=== PATIENT | male | born 1975 | race Caucasian/White ===

== ENCOUNTER 2019-01-22 12:45 | Inpatient (IN) | payer OTHER ==
[2019-01-22 13:37] VITALS: BMI 27.1
--- NOTE | 2019-01-22 14:02 | HP ---
CIWA Score Nausea/Vomitin Muscle Tremors: 2 Anxiety: 3 Agitation: 3 Paroxysmal Sweats: No Perspiration Orientation: 0-Oriented Tacttile Disturbances: 1-Very Mild Itch/Numbness Auditory Disturbances: 0-None Visual Disturbances: 0-None Headache: 2-Mild CIWA-Ar Total Score: 13 - Admission Criteria OASAS Guidelines: Admission for Medically Managed Detox: Requires at least one of the followin. CIWA greater than 12 2. Seizures within the past 24 hours 3. Delirium tremens within the past 24 hours 4. Hallucinations within the past 24 hours 5. Acute intervention needed for co occurring medical disorder 6. Acute intervention needed for co occurring psychiatric disorder 7. Severe withdrawal that cannot be handled at a lower level of care (continued vomiting, continued diarrhea, abnormal vital signs) requiring intravenous medication and/or fluids 8. Admission ROS BHS - HPI Chief Complaint: i need help to stop drinking alcohol Allergies/Adverse Reactions: Allergies Allergy/AdvReac Type Severity Reaction Status Date / Time No Known Allergies Allergy Verified 01/22/19 13:29 History of Present Illness: this 43 years old male with alcohol dependence,seeking detox form alcohol, denied seizure, syncope alcohol related nicotine dependence insomnia,depression multiple admissions in the past,last 11/15 history of neuropathy anxiety,depression,insomnia longest sobriety 6 years plan for rehab after detox Exam Limitations: No Limitations - Ebola screening Have you traveled outside of the country in the last 21 days: No (N) Have you had contact with anyone from an Ebola affected area: No Do you have a fever: No - Review of Systems Constitutional: Loss of Appetite, Malaise, Night Sweats, Changes in sleep, Weakness, Weight Stable EENT: reports: Nose Congestion Respiratory: reports: No Symptoms reported Cardiac: reports: No Symptoms Reported GI: reports: Nausea, Poor Appetite, Abdominal cramping : reports: No Symptoms Reported Musculoskeletal: reports: Back Pain, Muscle Pain Integumentary: reports: Dryness Neuro: reports: Headache, Tremors Endocrine: reports: No Symptoms Reported Hematology: reports: No Symptoms Reported Psychiatric: reports: No Sypmtoms Reported, Judgement Intact, Orientated x3, Anxious (insonia), Depressed, Disorientated Other Systems: Reviewed and Negative Patient History - Patient Medical History Hx Anemia: No Hx Asthma: No Hx Chronic Obstructive Pulmonary Disease (COPD): No Hx Cancer: No Hx Cardiac Disorders: No Hx Congestive Heart Failure: No Hx Hypertension: Yes (no medication) Hx Hypercholesterolemia: No Hx Pacemaker: No HX Cerebrovascular Accident: No Hx Seizures: No Hx Dementia: No Hx Diabetes: No Hx Gastrointestinal Disorders: No Hx Liver Disease: No Hx Genitourinary Disorders: No Hx Sexually Transmitted Disorders: No Hx Renal Disease (ESRD): No Hx Thyroid Disease: No Hx Human Immunodeficiency Virus (HIV): No (last 11/15 negative) Hx Hepatitis C: No Hx Depression: Yes (anxiety,insomnia) Hx Suicide Attempt: No Hx Bipolar Disorder: No Hx Schizophrenia: No Other Medical History: no suicidal,no homicidal - Patient Surgical History Past Surgical History: No - PPD History Previous Implant?: Yes Documented Results: Negative w/o proof PPD to be Administered?: No - Smoking Cessation Smoking history: Current every day smoker Have you smoked in the past 12 months: Yes Aproximately how many cigarettes per day: 20 Cigars Per Day: 0 Hx Chewing Tobacco Use: No Initiated information on smoking cessation: Yes 'Breaking Loose' booklet given: 01/22/19 - Substance & Tx. History Hx Alcohol Use: Yes Hx Substance Use: No Substance Use Type: Alcohol Hx Substance Use Treatment: Yes ([facility] 11/15 ) - Substances abused Alcohol Substance route: Oral Frequency: Daily Amount used: 20 CANS OF BEER 16 OZ Age of first use: 4 Date of last use: 01/22/19 Admission Physical Exam BHS - Vital Signs Vital Signs: Vital Signs - 24 hr 01/22/19 13:25 Temperature 97.8 F Pulse Rate 95 H Respiratory 18 Rate Blood Pressure 141/75 - Physical General Appearance: Yes: Moderate Distress, Tremorous, Irritable, Sweating, Anxious HEENTM: Yes: Normal ENT Inspection, ROMAN, Pharynx Normal Respiratory: Yes: Within Normal Limits, Lungs Clear, Normal Breath Sounds Neck: Yes: Within Normal Limits, Supple, Trachea in good position Breast: Yes: Within Normal Limits Cardiology: Yes: Within Normal Limits, Regular Rhythm, Regular Rate, S1, S2 Abdominal: Yes: Within Normal Limits, Normal Bowel Sounds, Non Tender, Flat, Soft Genitourinary: Yes: Within Normal Limits Back: Yes: Muscle Spasm Musculoskeletal: Yes: Back pain, Muscle Pain Extremities: Yes: Within Normal Limits, Normal Range of Motion, Tremors Neurological: Yes: carton repairer II-XII NML intact, Fully Oriented, Alert, Motor Strength 5/5 Integumentary: Yes: Dry Lymphatic: Yes: Within Normal Limits - Diagnostic (1) Alcohol dependence with uncomplicated withdrawal Current Visit: Yes Status: Acute (2) Alcohol dependence with uncomplicated intoxication Current Visit: Yes Status: Acute (3) Syncope Current Visit: Yes Status: Acute (4) Nicotine dependence Current Visit: Yes Status: Chronic (5) Insomnia secondary to depression with anxiety Current Visit: Yes Status: Acute (6) Peripheral neuropathy Current Visit: Yes Status: Acute Cleared for Admission [facility] - Detox or Rehab [facility] Level of Care: Medically Managed Detox Regimen/Protocol: Librium Breathalyzer - Breathalyzer Breathalyzer: 0.159 Urine Drug Screen - Test Device Lot number: [id number] Expiration date: 08/27/20 - Control Is test valid?: Yes - Results Drug screen NEGATIVE: Yes Inpatient Rehab Admission - Rehab Decision to Admit Inpatient rehab admission?: No
[2019-01-22] MEDS ORDERED: chlordiazePOXIDE HCL 10 MG CAPSULE PO PRN (14:16)
[2019-01-22] MEDS ORDERED: MENTHOL/PHENOL 1 EACH UD MM PRN (14:16)
[2019-01-22] MEDS ORDERED: MAG HYDROX/AL HYDROX/SIMETH 30 ML UNIT-DOSE CUP PO PRN (14:16)
[2019-01-22] MEDS ORDERED: METHOCARBAMOL 500 MG TABLET PO PRN (14:16)
[2019-01-22] MEDS ORDERED: BISMUTH SUBSALICYLATE 524 MG/30 ML UD PO PRN (14:16)
[2019-01-22] MEDS ORDERED: IBUPROFEN 400 MG TABLET (FP) PO PRN (14:16)
[2019-01-22] MEDS ORDERED: ACETAMINOPHEN 325 MG TABLET (FP) PO PRN ×2 (14:16)
[2019-01-22] MEDS ORDERED: MAGNESIUM CITRATE 300 ML BOTTLE PO PRN (14:16)
[2019-01-22] MEDS ORDERED: MAGNESIUM HYDROX 2400MG/30ML ORAL SUSPENSION 30 ML CUP PO PRN (14:16)
[2019-01-22] MEDS ORDERED: NICOTINE POLACRILEX 2 MG GUM BC PRN (14:25)
--- NOTE | 2019-01-22 16:02 | EKG ---
Test Reason : Blood Pressure : / mmHG Vent. Rate : 085 BPM Atrial Rate : 085 BPM P-R Int : 118 ms QRS Dur : 100 ms QT Int : 366 ms P-R-T Axes : 039 017 037 degrees QTc Int : 435 ms NORMAL SINUS RHYTHM NORMAL ECG NO PREVIOUS ECGS AVAILABLE Confirmed by JUDY PETERSEN MD ([id number]) on 01/22/2019 4:02:26 PM Referred By: Confirmed By:JUDY PETERSEN MD
[2019-01-22] MEDS: NICOTINE 21 MG/24 HOURS TOPICAL PATCH TD SCH (17:04)
[2019-01-22] MEDS: chlordiazePOXIDE HCL 10 MG CAPSULE PO ONE (17:04)
[2019-01-22] MEDS: chlordiazePOXIDE HCL 25 MG CAPSULE PO SCH (21:00)
[2019-01-22] MEDS: THIAMINE HCL 100 MG TABLET (FP) PO SCH (22:11)
[2019-01-22] MEDS: MELATONIN 5 MG TABLETS PO PRN (22:12)
[2019-01-23] MEDS: chlordiazePOXIDE HCL 25 MG CAPSULE PO SCH ×3 (05:38→22:12)
[2019-01-23 10:11] LABS: HEMATOCRIT 45.5 % (35.4-49); HEMOGLOBIN 15.7 GM/dL (11.7-16.9); MCH 33.8 pg (25.7-33.7); MCHC 34.5 g/dl (32.0-35.9); MEAN CELL VOLUME 98.1 fl (80-96); MEAN PLT VOLUME 8.7 fl (7.5-11.1); PLATELET COUNT 183 K/MM3 (134-434); RBC 4.64 M/mm3 (4.00-5.60); RDW 13.3 % (11.9-15.9); WHITE BLOOD COUNT 5.1 K/mm3 (4.0-10.0)
[2019-01-23 10:16] LABS: ALBUMIN 3.8 g/dl (3.4-5.0); BILIRUBIN,TOTAL 0.8 mg/dL (0.2-1); BLOOD UREA NITROGEN 5.8 mg/dL (7-18); CALCIUM 9.3 mg/dL (8.5-10.1); CREATININE 0.7 mg/dL (0.55-1.3); POTASSIUM 3.9 mmol/L (3.5-5.1); TOT PROT 7.2 g/dl (6.4-8.2)
[2019-01-23] MEDS: NICOTINE 21 MG/24 HOURS TOPICAL PATCH TD SCH (10:16)
[2019-01-23] MEDS: PRENATAL VITAMINS W/ FOLIC ACID TABLET (FP) PO SCH (10:16)
[2019-01-23] MEDS: hydrOXYzine PAMOATE 25 MG CAPSULE (FP) PO PRN (10:17)
--- NOTE | 2019-01-23 14:21 | PN ---
S CIWA - CIWA Score Nausea/Vomitin-Mild Nausea/No Vomiting Muscle Tremors: 3 Anxiety: 3 Agitation: 2 Paroxysmal Sweats: 3 Orientation: 0-Oriented Tacttile Disturbances: 0-None Auditory Disturbances: 0-None Visual Disturbances: 0-None Headache: 0-None Present CIWA-Ar Total Score: 12 S Progress Note (SOAP) Subjective: Tremor, sweating, vomited once this morning, interrupted sleep Objective: 01/23/19 14:20 Last Vital Signs Temp Pulse Resp BP Pulse Ox 98.2 F 70 18 128/89 01/23/19 09:49 01/23/19 09:49 01/23/19 09:49 01/23/19 09:49 Laboratory Tests 01/23/19 01/23/19 01/23/19 07:40 07:40 07:40 WBC 5.1 RBC 4.64 Hgb 15.7 Hct 45.5 MCV 98.1 H MCH 33.8 H MCHC 34.5 RDW 13.3 Plt Count 183 MPV 8.7 Sodium 140 Potassium 3.9 Chloride 102 Carbon Dioxide 30 Anion Gap 8 BUN 5.8 L Creatinine 0.7 Est GFR (CKD-EPI)AfAm 132.09 Est GFR (CKD-EPI)NonAf 113.97 Random Glucose 92 Calcium 9.3 Total Bilirubin 0.8 AST 47 H ALT 58 Alkaline Phosphatase 78 Total Protein 7.2 Albumin 3.8 RPR Titer Nonreactive Labs reviewed Assessment: 01/23/19 14:21 Withdrawal sxs Plan: Continue detox Encouraged PO water intake Psych consult ordered: patient stated he takes psych medication at home
[2019-01-23 17:31] LABS: URINE APPEARANCE CLEAR; URINE BILIRUBIN NEGATIVE (NEGATIVE); URINE COLOR YELLOW; URINE GLUCOSE (UA) NEGATIVE (NEGATIVE); URINE KETONE 1+ (NEGATIVE); URINE LEUK ESTERASE NEGATIVE (NEGATIVE); URINE NITRITE NEGATIVE (NEGATIVE); URINE PROTEIN TRACE (NEGATIVE)
[2019-01-23] MEDS: MELATONIN 5 MG TABLETS PO PRN (22:12)
[2019-01-23] MEDS: THIAMINE HCL 100 MG TABLET (FP) PO SCH (22:12)
[2019-01-24] MEDS: chlordiazePOXIDE 5 MG CAPSULE PO SCH ×3 (05:26→21:54)
[2019-01-24] MEDS: hydrOXYzine PAMOATE 25 MG CAPSULE (FP) PO PRN ×3 (05:29→22:26)
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
[2019-01-24] MEDS: PRENATAL VITAMINS W/ FOLIC ACID TABLET (FP) PO SCH (11:39)
[2019-01-24] MEDS: NICOTINE 21 MG/24 HOURS TOPICAL PATCH TD SCH (12:50)
--- NOTE | 2019-01-24 13:03 | PN ---
S CIWA - CIWA Score Nausea/Vomitin-Mild Nausea/No Vomiting Muscle Tremors: 2 Anxiety: 3 Agitation: 3 Paroxysmal Sweats: No Perspiration Orientation: 0-Oriented Tacttile Disturbances: 1-Very Mild Itch/Numbness Auditory Disturbances: 0-None Visual Disturbances: 0-None Headache: 2-Mild CIWA-Ar Total Score: 12 S Progress Note (SOAP) Subjective: alert,irritable,anxious,interrupted sleep,pain in the body and feet,history of neuropathy Objective: 01/24/19 13:01 Vital Signs Temperature 97.9 F 01/24/19 09:43 Pulse Rate 81 01/24/19 09:43 Respiratory Rate 16 01/24/19 09:43 Blood Pressure 114/77 01/24/19 09:43 O2 Sat by Pulse Oximetry (%) Laboratory Last Values WBC 5.1 K/mm3 (4.0-10.0) 01/23/19 07:40 RBC 4.64 M/mm3 (4.00-5.60) 01/23/19 07:40 Hgb 15.7 GM/dL (11.7-16.9) 01/23/19 07:40 Hct 45.5 % (35.4-49) 01/23/19 07:40 MCV 98.1 fl (80-96) H 01/23/19 07:40 MCH 33.8 pg (25.7-33.7) H 01/23/19 07:40 MCHC 34.5 g/dl (32.0-35.9) 01/23/19 07:40 RDW 13.3 % (11.9-15.9) 01/23/19 07:40 Plt Count 183 K/MM3 (134-434) 01/23/19 07:40 MPV 8.7 fl (7.5-11.1) 01/23/19 07:40 Sodium 140 mmol/L (136-145) 01/23/19 07:40 Potassium 3.9 mmol/L (3.5-5.1) 01/23/19 07:40 Chloride 102 mmol/L (98-107) 01/23/19 07:40 Carbon Dioxide 30 mmol/L (21-32) 01/23/19 07:40 Anion Gap 8 MMOL/L (8-16) 01/23/19 07:40 BUN 5.8 mg/dL (7-18) L 01/23/19 07:40 Creatinine 0.7 mg/dL (0.55-1.3) 01/23/19 07:40 Est GFR (CKD-EPI)AfAm 132.09 01/23/19 07:40 Est GFR (CKD-EPI)NonAf 113.97 01/23/19 07:40 Random Glucose 92 mg/dL (74-106) 01/23/19 07:40 Calcium 9.3 mg/dL (8.5-10.1) 01/23/19 07:40 Total Bilirubin 0.8 mg/dL (0.2-1) 01/23/19 07:40 AST 47 U/L (15-37) H 01/23/19 07:40 ALT 58 U/L (13-61) 01/23/19 07:40 Alkaline Phosphatase 78 U/L (45-117) 01/23/19 07:40 Total Protein 7.2 g/dl (6.4-8.2) 01/23/19 07:40 Albumin 3.8 g/dl (3.4-5.0) 01/23/19 07:40 Urine Color Yellow 01/23/19 13:30 Urine Appearance Clear 01/23/19 13:30 Urine pH 8.0 (5.0-8.0) 01/23/19 13:30 Ur Specific [place] 1.022 (1.010-1.035) 01/23/19 13:30 Urine Protein Trace (NEGATIVE) 01/23/19 13:30 Urine Glucose (UA) Negative (NEGATIVE) 01/23/19 13:30 Urine Ketones 1+ (NEGATIVE) H 01/23/19 13:30 Urine Blood Negative (NEGATIVE) 01/23/19 13:30 Urine Nitrite Negative (NEGATIVE) 01/23/19 13:30 Urine Bilirubin Negative (NEGATIVE) 01/23/19 13:30 Urine Urobilinogen 1.0 mg/dL (0.2-1.0) 01/23/19 13:30 Ur Leukocyte Esterase Negative (NEGATIVE) 01/23/19 13:30 RPR Titer Nonreactive (NONREACTIVE) 01/23/19 07:40 Assessment: 01/24/19 13:02 withdrawal symptom Plan: continue detox librium regimen,neurontin 300 mgs po bid
[2019-01-24] MEDS: GABAPENTIN 300 MG CAPSULE (FP) PO SCH ×2 (14:01→22:24)
[2019-01-24] MEDS: THIAMINE HCL 100 MG TABLET (FP) PO SCH (22:24)
[2019-01-24] MEDS: MELATONIN 5 MG TABLETS PO PRN (22:25)
[2019-01-25] MEDS ORDERED: chlordiazePOXIDE HCL 10 MG CAPSULE PO PRN
[2019-01-25] MEDS: chlordiazePOXIDE HCL 10 MG CAPSULE PO SCH ×3 (05:58→22:25)
[2019-01-25] MEDS: hydrOXYzine PAMOATE 25 MG CAPSULE (FP) PO PRN (06:01)
[2019-01-25] MEDS: NICOTINE 21 MG/24 HOURS TOPICAL PATCH TD SCH (10:28)
[2019-01-25] MEDS: PRENATAL VITAMINS W/ FOLIC ACID TABLET (FP) PO SCH (10:28)
[2019-01-25] MEDS: GABAPENTIN 300 MG CAPSULE (FP) PO SCH ×2 (10:28→22:25)
--- NOTE | 2019-01-25 10:34 | PN ---
S CIWA - CIWA Score Nausea/Vomitin-No Nausea/No Vomiting Muscle Tremors: 2 Anxiety: 1-Mildly Anxious Agitation: 1-Slight > Activity Paroxysmal Sweats: 1-Minimal Palms Moist Orientation: 0-Oriented Tacttile Disturbances: 0-None Auditory Disturbances: 0-None Visual Disturbances: 0-None Headache: 0-None Present CIWA-Ar Total Score: 5 BHS Progress Note (SOAP) Subjective: sweats irritable Objective: 01/25/19 10:31 Vital Signs Temperature 97.7 F 01/25/19 09:44 Pulse Rate 75 01/25/19 09:44 Respiratory Rate 16 01/25/19 09:44 Blood Pressure 127/79 01/25/19 09:44 O2 Sat by Pulse Oximetry (%) aaox3 ambulating no acute distress Assessment: 01/25/19 10:34 mild withdrawals Plan: continue detox increase fluids d/c in am
[2019-01-25] MEDS: THIAMINE HCL 100 MG TABLET (FP) PO SCH (22:25)
[2019-01-25] MEDS: MELATONIN 5 MG TABLETS PO PRN (22:25)
[2019-01-26] MEDS: chlordiazePOXIDE HCL 10 MG CAPSULE PO ONE (05:15)
[2019-01-26 05:46] VITALS: BP 106/58; PULSE 63; TEMP 97.5
--- NOTE | 2019-01-26 08:58 | DS ---
[facility] Detox Discharge Summary Admission Date: 01/22/19 Discharge Date: 01/26/19 - History Present History: Alcohol Dependence - Physical Exam Results Vital Signs: Vital Signs Temperature 97.5 F L 01/26/19 05:46 Pulse Rate 63 01/26/19 05:46 Respiratory Rate 18 01/26/19 05:46 Blood Pressure 106/58 L 01/26/19 05:46 O2 Sat by Pulse Oximetry (%) Pertinent Admission Physical Exam Findings: pt arrived in withdrawals Vital Signs Temperature 97.5 F L 01/26/19 05:46 Pulse Rate 63 01/26/19 05:46 Respiratory Rate 18 01/26/19 05:46 Blood Pressure 106/58 L 01/26/19 05:46 O2 Sat by Pulse Oximetry (%) Laboratory Tests 01/23/19 01/23/19 01/23/19 07:40 07:40 07:40 WBC 5.1 RBC 4.64 Hgb 15.7 Hct 45.5 MCV 98.1 H MCH 33.8 H MCHC 34.5 RDW 13.3 Plt Count 183 MPV 8.7 Sodium 140 Potassium 3.9 Chloride 102 Carbon Dioxide 30 Anion Gap 8 BUN 5.8 L Creatinine 0.7 Est GFR (CKD-EPI)AfAm 132.09 Est GFR (CKD-EPI)NonAf 113.97 Random Glucose 92 Calcium 9.3 Total Bilirubin 0.8 AST 47 H ALT 58 Alkaline Phosphatase 78 Total Protein 7.2 Albumin 3.8 Urine Color Urine Appearance Urine pH Ur Specific [place] Urine Protein Urine Glucose (UA) Urine Ketones Urine Blood Urine Nitrite Urine Bilirubin Urine Urobilinogen Ur Leukocyte Esterase RPR Titer Nonreactive 01/23/19 13:30 WBC RBC Hgb Hct MCV MCH MCHC RDW Plt Count MPV Sodium Potassium Chloride Carbon Dioxide Anion Gap BUN Creatinine Est GFR (CKD-EPI)AfAm Est GFR (CKD-EPI)NonAf Random Glucose Calcium Total Bilirubin AST ALT Alkaline Phosphatase Total Protein Albumin Urine Color Yellow Urine Appearance Clear Urine pH 8.0 Ur Specific [place] 1.022 Urine Protein Trace Urine Glucose (UA) Negative Urine Ketones 1+ H Urine Blood Negative Urine Nitrite Negative Urine Bilirubin Negative Urine Urobilinogen 1.0 Ur Leukocyte Esterase Negative RPR Titer pt is aaox3 ambulating no acute distress no s/s of withdrawals - Treatment Hospital Course: Detox Protocol Followed, Detoxed Safely, Responded well, Discharged Condition Good, Rehab Referral Accepted Patient has Accepted a Rehab Referral to: pt declined rehab; referral provided - Medication Discharge Medications: Ambulatory Orders NK [No Known Home Medication] 01/22/19 - Diagnosis (1) Alcohol dependence with uncomplicated withdrawal Current Visit: Yes Status: Chronic (2) Alcohol-induced sleep disorder Current Visit: Yes Status: Acute (3) Alcoholic peripheral neuropathy Current Visit: Yes Status: Chronic (4) HTN (hypertension) Current Visit: Yes Status: Chronic Qualifiers: Hypertension type: essential hypertension Qualified Code(s): I10 - Essential (primary) hypertension (5) Nicotine dependence Current Visit: Yes Status: Chronic Qualifiers: Nicotine product type: cigarettes Substance use status: uncomplicated Qualified Code(s): F17.210 - Nicotine dependence, cigarettes, uncomplicated (6) Bipolar disorder Current Visit: Yes Status: Ruled-out - AMA Did Patient Leave Against Medical Advice: No
== END 2019-01-26 09:01 | disposition home or self-care (01) | DRG 775 ==
LOC: YASAS 12:45 → Y6N 14:43
PROVIDERS: ADMIT Allergy & Immunology; ATTEND Allergy & Immunology
PROC: HZ2ZZZZ Detoxification Services for Substance Abuse Treatment (ICD-10-PCS; principal; 2019-01-22)
DX: F10.230 Alcohol dependence with withdrawal, uncomplicated (principal); F10.220 Alcohol dependence with intoxication, uncomplicated; F10.280 Alcohol dependence with alcohol-induced anxiety disorder; F10.282 Alcohol dependence with alcohol-induced sleep disorder; F17.210 Nicotine dependence, cigarettes, uncomplicated; F51.05 Insomnia due to other mental disorder; I10 Essential (primary) hypertension; G62.1 Alcoholic polyneuropathy
CPT/HCPCS: 36415; 80053; 81003; 85027; 86593; 93005; 93010